=== PATIENT | female | born 1970 | race Caucasian/White ===

== ENCOUNTER 2021-04-18 12:40 | Day surgery (SDC) | payer OTHER ==
[2021-04-18] MEDS ORDERED: Depo-Medrol 40 MG/ML IM ONE (12:41)
[2021-04-18] MEDS ORDERED: Sodium Chloride 0.9(Preservative Free) 10 ML IJ ONE (12:41)
[2021-04-18] MEDS ORDERED: Xylocaine 1% Vial 30 ML PF IJ ONE (12:41)
[2021-04-18] MEDS ORDERED: DIPRIVAN 200 MG/20 ML IV ONE (15:09)
--- NOTE | 2021-04-18 16:38 | XRAY ---
Indication: Lumbar SAMANTHA. Intraoperative fluoroscopy provided for 35 seconds. Single lateral digital spot image submitted for interpretation demonstrates posterior needle tip just posterior to the L4-L5 interspace. Small amount of contrast injected for needle tip placement. Correlate with intraoperative findings/report.
--- NOTE | 2021-04-18 17:13 | XRAY ---
35 seconds fluoroscopy time in surgery for lumbar SAMANTHA.
[2021-04-18] MEDS ORDERED: Lactated Ringers 1,000 ML IV ONE (18:07)
== END 2021-04-18 15:45 | disposition home or self-care (01) ==
LOC: SDC-PAIN 12:40
PROVIDERS: ATTEND Psychiatry & Neurology Pain Medicine
DX: M54.16 Radiculopathy, lumbar region (principal); Z79.899 Other long term (current) drug therapy
CPT/HCPCS: 36415; 62321; 72100; 77003; 81025; J1030; J2001; J2704; Q9966

== ENCOUNTER 2021-07-04 10:26 | Day surgery (SDC) | payer OTHER ==
[2021-07-04] MEDS ORDERED: Sodium Chloride 0.9% 10 ML FLUSH Syringe IJ ONE (10:27)
[2021-07-04] MEDS ORDERED: Depo-Medrol 40 MG/ML IM ONE (10:27)
[2021-07-04] MEDS ORDERED: Xylocaine 1% Vial 30 ML PF IJ ONE (10:27)
[2021-07-04] MEDS ORDERED: DIPRIVAN 200 MG/20 ML IV ONE (11:58)
[2021-07-04] MEDS ORDERED: TORAdol 30 mg Injection ONE (12:15)
[2021-07-04] MEDS ORDERED: Lactated Ringers 1,000 ML IV ONE (12:28)
--- NOTE | 2021-07-04 12:36 | XRAY ---
30 seconds fluoroscopy time in surgery for lumbar SAMANTHA..
--- NOTE | 2021-07-04 12:46 | XRAY ---
Indication: Lumbar SAMANTHA. Intraoperative fluoroscopy provided for 30 seconds. Single lateral digital spot image submitted for interpretation demonstrates posterior needle tip projecting posterior to last lumbar segment. Small amount of contrast injected for needle tip placement. Correlate with intraoperative findings/report.
== END 2021-07-04 12:25 | disposition home or self-care (01) ==
LOC: SDC-PAIN 10:26
PROVIDERS: ATTEND Psychiatry & Neurology Pain Medicine
DX: M54.16 Radiculopathy, lumbar region (principal); I10 Essential (primary) hypertension; Z79.899 Other long term (current) drug therapy
CPT/HCPCS: 62323; 72100; 77003; 84703; J1030; J1885; J2001; J2704; Q9966

== ENCOUNTER 2021-10-25 13:21 | Day surgery (SDC) | payer OTHER ==
[2021-10-25] MEDS ORDERED: Depo-Medrol 40 MG/ML IM ONE (13:22)
[2021-10-25] MEDS ORDERED: Xylocaine 1% Vial 30 ML PF IJ ONE (13:22)
[2021-10-25 14:18] LABS: ALBUMIN 4.4 g/dL (3.5-5.0); ALKALINE PHOSPHATASE 68 U/L (38-126); ANION GAP 14.2 MEQ/L (5-15); BLOOD UREA NITROGEN 17 mg/dL (7-17); CHLORIDE 104 mmol/L (98-107); Calcium 9.9 mg/dL (8.4-10.2); Carbon Dioxide 27 mmol/L (22-30); Cholesterol 248 mg/dL (50-200); Creatinine 1 0.95 mg/dL (0.52-1.04); Direct Bilirubin 0.3 mg/dL (0.0-0.4); EST GLOMERULAR FILTRATION RATE > 60.0 ML/MIN; Glucose 93 mg/dL (74-106); HDL CHOLESTEROL 65 mg/dL (40-60); LDL, DIRECT 129 mg/dL (30-100); Potassium 3.7 mmol/L (3.5-5.1); Risk Ratio 3.8; SGOT/AST 34 U/L (14-36); SGPT/ALT 21 U/L (0-35); SODIUM 141 mmol/L (137-145); TRIGLYCERIDE 108 mg/dL (30-150); Total Protein 7.8 g/dL (6.3-8.2)
[2021-10-25] MEDS ORDERED: DIPRIVAN 200 MG/20 ML IV ONE (16:06)
[2021-10-25] MEDS ORDERED: Lactated Ringers 1,000 ML IV ONE (16:11)
--- NOTE | 2021-10-25 16:52 | XRAY ---
Indication: Bilateral SI joint injection. Intraoperative fluoroscopy provided for 21 seconds. 5 digital spot image submitted for interpretation demonstrates posterior needle tip projecting over the inferior left and right SI joint. Correlate with intraoperative findings/report.
--- NOTE | 2021-10-26 15:41 | XRAY ---
21 seconds fluoroscopy time for injections of both SI joints.
== END 2021-10-25 16:29 | disposition home or self-care (01) ==
LOC: SDC-PAIN 13:21
PROVIDERS: ATTEND Psychiatry & Neurology Pain Medicine
DX: M46.1 Sacroiliitis, not elsewhere classified (principal); I10 Essential (primary) hypertension; Z79.899 Other long term (current) drug therapy; Z13.9 Encounter for screening, unspecified
CPT/HCPCS: 27096; 36415; 72202; 77002; 80048; 80061; 80076; 83721; 83735; 84703; G0260; J1030; J2001; J2704

== ENCOUNTER 2021-11-07 05:50 | Day surgery (SDC) | payer OTHER ==
[2021-11-07] MEDS ORDERED: Lactated Ringers 1,000 ML IV SCH (06:30)
[2021-11-07] MEDS ORDERED: DIPRIVAN 200 MG/20 ML IV ONE ×3 (08:06→08:23)
[2021-11-07] MEDS ORDERED: Xylocaine-Mpf 2% 5 Ml Vial ONE (08:06)
[2021-11-07] MEDS ORDERED: ATROPINE SULFATE 1MG ONE (08:15)
--- NOTE | 2021-11-07 08:55 | OP ---
SURGERY DATE/TIME: 11/07/2021 0803 PREOPERATIVE DIAGNOSIS: Rectal pain. POSTOPERATIVE DIAGNOSIS: Diverticulosis. PROCEDURE: Diagnostic colonoscopy. SURGEON: Ted Pruitt M.D. ANESTHESIA: MAC by Kameron Bernal CRNA. ESTIMATED BLOOD LOSS: None. SPECIMENS: None. DESCRIPTION OF PROCEDURE: After informed written consent was obtained, the patient was taken to the endoscopy suite. She was placed in the left lateral decubitus position and digital rectal exam showed normal sphincter tone with no internal lesions after anesthesia was titrated to the desired level of consciousness. The colonscope was then inserted into the rectum and sequentially the entire colonic mucosa was traversed. The level of cecum was reached and verified with direct visualization of the ileocecal valve. The patient was noted to have a tortuous colon with diffuse diverticulosis but no other mucosal abnormalities. Prior to withdrawal retroflexion was performed and showed no internal lesions. The scope was removed. The patient was transferred to the recovery room in good condition.
[2021-11-07 09:26] VITALS: BP 138/86; PULSE 67; O2SAT 96
== END 2021-11-07 09:30 | disposition home or self-care (01) ==
LOC: SDC 05:50
PROVIDERS: ATTEND Family Medicine
DX: K57.30 Diverticulosis of large intestine without perforation or abscess without bleeding (principal); K62.89 Other specified diseases of anus and rectum
CPT/HCPCS: 84703; J0461; J2704

== ENCOUNTER 2022-09-04 14:55 | Day surgery (SDC) | payer OTHER ==
[2022-09-04] MEDS ORDERED: Depo-Medrol 40 MG/ML IM ONE (14:56)
[2022-09-04] MEDS ORDERED: BUPIVACAINE 0.5% VIAL IJ ONE (14:56)
[2022-09-04] MEDS ORDERED: DIPRIVAN 200 MG/20 ML IV ONE ×2 (16:52→17:02)
[2022-09-04] MEDS ORDERED: Lactated Ringers 1,000 ML IV ONE (17:43)
--- NOTE | 2022-09-04 19:11 | XRAY ---
Indication: Bilateral hip injection. Intraoperative fluoroscopy provided for 1 minute 8 seconds. 3 digital spot image submitted for interpretation demonstrates needle tip projecting lateral to the left and right femur neck. Small amount of contrast injected for both needle tip placement. Correlate with intraoperative findings/report.
--- NOTE | 2022-09-05 08:37 | XRAY ---
One minute and 8 seconds of fluoroscopy was used in surgery for a bilateral intra-articular hip injection.
== END 2022-09-04 17:30 | disposition home or self-care (01) ==
LOC: SDC-PAIN 14:55
PROVIDERS: ATTEND Psychiatry & Neurology Pain Medicine
DX: M17.0 Bilateral primary osteoarthritis of knee (principal); Z79.899 Other long term (current) drug therapy
CPT/HCPCS: 20610; 73521; 77002; 81025; J1030; J2704; Q9966

== ENCOUNTER 2022-10-09 13:36 | Day surgery (SDC) | payer OTHER ==
[2022-10-09] MEDS ORDERED: LIDOCAINE HCL 2% 100 MG/5 ML IJ ONE (13:37)
[2022-10-09 15:05] LABS: HCG URINE TEST NEGATIVE (NEGATIVE)
[2022-10-09 15:36] LABS: Absolute Neutrophil Ct (ANC) 3.52 x10^3/uL (1.4-6.9); BASOPHIL % 0.5 % (0.0-0.4); Basophil (Absolute #) 0.03 x10^3/uL (0-0.4); Eosinophil % 1.8 % (0.00-5.0); Eosinophil (Absolute #) 0.12 x10^3/uL (0-0.5); Hematocrit 43.4 % (35-47); Hemoglobin 13.2 g/dL (12.0-16.0); IMMATURE GRAN # 0.01 x10^3u/L (0.00-0.03); IMMATURE GRAN % 0.2 % (0.00-0.4); Lymphocyte (Absolute #) 2.43 x10^3/uL (1.0-4.6); Lymphocytes % 37.2 % (24.0-44.0); Mean Cell Volume 88.6 fL (78-100); Mean Corpuscular Hemoglobin 26.9 pg (26-32); Mean Corpuscular Hgb Concent. 30.4 g/dL (32-36); Mean Platelet Volume 9.2 fL (7.5-11.0); Monocyte (Absolute #) 0.43 x10^3/uL (0.0-1.3); Monocytes % 6.6 % (0.0-12.0); Neutrophil % 53.7 % (36.0-66.0); Platelet Count 297 x10^3/uL (150-450); Red Cell Distribution Width 13.2 % (11.5-14.0); White Blood Count 6.5 x10^3/uL (4.0-10.5)
[2022-10-09] MEDS ORDERED: DIPRIVAN 200 MG/20 ML IV ONE (15:59)
[2022-10-09] MEDS ORDERED: Lactated Ringers 1,000 ML IV ONE (16:43)
--- NOTE | 2022-10-09 16:45 | XRAY ---
Indication: Bilateral L4-S1 MBB. Intraoperative fluoroscopy provided for 14 seconds. Single digital spot image submitted for interpretation demonstrates posterior needle tips projecting over the expected left and right L4-S1 nerve roots. Correlate with intraoperative findings/report.
--- NOTE | 2022-10-09 16:47 | XRAY ---
14 seconds of fluoroscopy was used in surgery for a bilateral L4-S1 MBB.
== END 2022-10-09 16:30 | disposition home or self-care (01) ==
LOC: SDC-PAIN 13:36
PROVIDERS: ATTEND Psychiatry & Neurology Pain Medicine
DX: M47.816 Spondylosis without myelopathy or radiculopathy, lumbar region (principal); E03.9 Hypothyroidism, unspecified
CPT/HCPCS: 36415; 64493; 64494; 72020; 77002; 81025; 84439; 84443; 85025; J2704

== ENCOUNTER 2022-11-20 14:51 | Day surgery (SDC) | payer OTHER ==
[2022-11-20] MEDS ORDERED: BUPIVACAINE 0.5% VIAL IJ ONE (14:52)
[2022-11-20 15:03] LABS: HCG URINE TEST NEGATIVE (NEGATIVE)
[2022-11-20] MEDS ORDERED: DIPRIVAN 200 MG/20 ML IV ONE (16:01)
[2022-11-20] MEDS ORDERED: Lactated Ringers 1,000 ML IV ONE (16:36)
--- NOTE | 2022-11-20 23:30 | XRAY ---
Indication: Bilateral L4-S1 MBB. Intraoperative fluoroscopy provided for 11 seconds. Single digital spot image submitted for interpretation demonstrates posterior needle tips projecting over the expected left and right L4-S1 nerve roots. Correlate with intraoperative findings/report.
--- NOTE | 2022-11-21 17:35 | XRAY ---
11 seconds of fluoroscopy was used in surgery for a bilateral L4-S1 MBB.
== END 2022-11-20 16:30 | disposition home or self-care (01) ==
LOC: SDC-PAIN 14:51
PROVIDERS: ATTEND Psychiatry & Neurology Pain Medicine
DX: M47.816 Spondylosis without myelopathy or radiculopathy, lumbar region (principal); Z79.899 Other long term (current) drug therapy
CPT/HCPCS: 64493; 64494; 72020; 77002; 81025; J2704

== ENCOUNTER 2022-12-25 12:58 | Day surgery (SDC) | payer OTHER ==
[2022-12-25] MEDS ORDERED: BUPIVACAINE 0.5% VIAL IJ ONE (12:59)
[2022-12-25] MEDS ORDERED: LIDOCAINE HCL 1% 50 MG/5 ML VL PF IJ ONE (12:59)
[2022-12-25] MEDS ORDERED: Depo-Medrol 40 MG/ML IM ONE (12:59)
[2022-12-25 15:00] LABS: HCG URINE TEST NEGATIVE (NEGATIVE)
[2022-12-25] MEDS ORDERED: DIPRIVAN 200 MG/20 ML IV ONE (15:33)
[2022-12-25] MEDS ORDERED: Lactated Ringers 1,000 ML IV ONE (17:00)
--- NOTE | 2022-12-25 20:53 | XRAY ---
Indication: Left L4-S1 RFA. Intraoperative fluoroscopy provided for 37 seconds. 4 digital spot images submitted for interpretation demonstrates posterior needle tips projecting over the expected left L4-S1 nerve roots. Correlate with intraoperative findings/report.
--- NOTE | 2022-12-26 09:04 | XRAY ---
37 seconds of fluoroscopy was used in surgery for a left L4-S1 RFA.
== END 2022-12-25 16:05 | disposition home or self-care (01) ==
LOC: SDC-PAIN 12:58
PROVIDERS: ATTEND Psychiatry & Neurology Pain Medicine
DX: M47.816 Spondylosis without myelopathy or radiculopathy, lumbar region (principal); Z79.899 Other long term (current) drug therapy
CPT/HCPCS: 64635; 64636; 72100; 77002; 81025; J1030; J2001; J2704

== ENCOUNTER 2023-01-01 12:44 | Day surgery (SDC) | payer OTHER ==
[2023-01-01] MEDS ORDERED: LIDOCAINE HCL 1% 50 MG/5 ML VL PF IJ ONE (12:45)
[2023-01-01] MEDS ORDERED: BUPIVACAINE 0.5% VIAL IJ ONE (12:45)
[2023-01-01] MEDS ORDERED: Depo-Medrol 40 MG/ML IM ONE (12:45)
[2023-01-01 13:26] LABS: HCG URINE TEST NEGATIVE (NEGATIVE)
[2023-01-01] MEDS ORDERED: DIPRIVAN 200 MG/20 ML IV ONE (14:27)
[2023-01-01] MEDS ORDERED: Xylocaine-Mpf 2% 5 Ml Vial ONE (14:32)
[2023-01-01] MEDS ORDERED: Lactated Ringers 1,000 ML IV ONE (15:18)
--- NOTE | 2023-01-01 16:33 | XRAY ---
Indication: Right L4-S1 RFA. Intraoperative fluoroscopy provided for 17 seconds. 4 digital spot image submitted for interpretation demonstrates posterior needle tips projecting over the expected right L4-S1 nerve roots. Correlate with intraoperative findings/report.
--- NOTE | 2023-01-01 16:41 | XRAY ---
17 seconds of fluoroscopy was used in surgery for a right L4-S1 RFA.
== END 2023-01-01 15:02 | disposition home or self-care (01) ==
LOC: SDC-PAIN 12:44
PROVIDERS: ATTEND Psychiatry & Neurology Pain Medicine
DX: M47.816 Spondylosis without myelopathy or radiculopathy, lumbar region (principal); Z79.899 Other long term (current) drug therapy
CPT/HCPCS: 64635; 64636; 72100; 77002; 81025; J1030; J2001; J2704

== ENCOUNTER 2023-04-09 14:44 | Day surgery (SDC) | payer OTHER ==
[2023-04-09] MEDS ORDERED: BUPIVACAINE 0.5% VIAL IJ ONE (14:45)
[2023-04-09] MEDS ORDERED: Depo-Medrol 40 MG/ML IM ONE (14:45)
[2023-04-09 15:28] LABS: HCG URINE TEST NEGATIVE (NEGATIVE)
[2023-04-09] MEDS ORDERED: DIPRIVAN 200 MG/20 ML IV ONE (16:59)
[2023-04-09] MEDS ORDERED: Versed 2 MG/2 ML Injection ONE (17:00)
[2023-04-09] MEDS ORDERED: Lactated Ringers 1,000 ML IV ONE (17:24)
--- NOTE | 2023-04-09 18:03 | XRAY ---
Indication: Bilateral SI joint injection. Intraoperative fluoroscopy provided for 27 seconds. 4 digital spot image submitted for interpretation demonstrates posterior needle tip projecting over the expected left and right SI joint. Correlate with intraoperative findings/report.
--- NOTE | 2023-04-09 18:07 | XRAY ---
27 seconds of fluoroscopy was used in surgery for bilateral SI joint injections.
== END 2023-04-09 17:30 | disposition home or self-care (01) ==
LOC: SDC-PAIN 14:44
PROVIDERS: ATTEND Psychiatry & Neurology Pain Medicine
DX: M46.1 Sacroiliitis, not elsewhere classified (principal); Z79.899 Other long term (current) drug therapy
CPT/HCPCS: 01992; 27096; 72202; 77002; 81025; G0260; J1030; J2250; J2704

== ENCOUNTER 2023-07-23 14:50 | Day surgery (SDC) | payer OTHER ==
[2023-07-23] MEDS ORDERED: XYLOCAINE-MPF 1% 5ML SDV IJ ONE (14:51)
[2023-07-23] MEDS ORDERED: SYNVISC 16 MG/2 ML SYRINGE IU ONE (14:51)
[2023-07-23 15:38] LABS: HCG URINE TEST NEGATIVE (NEGATIVE)
--- NOTE | 2023-07-23 20:09 | XRAY ---
Indication: Right knee injection. Intraoperative fluoroscopy provided for 7 seconds. Single digital spot image submitted for interpretation demonstrates needle tip projecting over right femur intercondylar notch. Small amount of contrast injected for needle tip placement. Correlate with intraoperative findings/report.
--- NOTE | 2023-07-23 20:09 | XRAY ---
Indication: Left knee injection. Intraoperative fluoroscopy provided for 8 seconds. Single digital spot image submitted for interpretation demonstrates needle tip projecting over left femur intercondylar notch. Small amount of contrast injected for needle tip placement. Correlate with intraoperative findings/report.
--- NOTE | 2023-07-24 09:14 | XRAY ---
7 seconds of fluoroscopy was used in surgery for a right intra-articular knee injection.
--- NOTE | 2023-07-24 09:14 | XRAY ---
8 seconds of fluoroscopy was used in surgery for a left intra-articular knee injection.
== END 2023-07-23 17:15 | disposition home or self-care (01) ==
LOC: SDC-PAIN 14:50
PROVIDERS: ATTEND Psychiatry & Neurology Pain Medicine
DX: M17.0 Bilateral primary osteoarthritis of knee (principal)
CPT/HCPCS: 20610; 73560; 77002; 81025; J7325; Q9966

== ENCOUNTER 2023-07-30 15:43 | Day surgery (SDC) | payer OTHER ==
[2023-07-30] MEDS ORDERED: SYNVISC 16 MG/2 ML SYRINGE IU ONE (15:44)
[2023-07-30] MEDS ORDERED: XYLOCAINE-MPF 1% 5ML SDV IJ ONE (15:44)
[2023-07-30 17:20] LABS: HCG URINE TEST NEGATIVE (NEGATIVE)
--- NOTE | 2023-07-30 20:24 | XRAY ---
Indication: Right knee injection Intraoperative fluoroscopy provided for 4 seconds. Single digital spot image submitted for interpretation demonstrates needle tip projecting over right femur intercondylar notch. Small amount of contrast injected for needle tip placement. Correlate with intraoperative findings/report.
--- NOTE | 2023-07-30 20:24 | XRAY ---
Indication: Left knee injection Intraoperative fluoroscopy provided for 5 seconds. Single digital spot image submitted for interpretation demonstrates needle tip projecting over left femur intercondylar notch. Small amount of contrast injected for needle tip placement. Correlate with intraoperative findings/report.
--- NOTE | 2023-07-31 10:25 | XRAY ---
4 seconds of fluoroscopy was used in surgery for a right intra-articular knee injection.
--- NOTE | 2023-07-31 10:25 | XRAY ---
5 seconds of fluoroscopy was used in surgery for a left intra-articular knee injection.
== END 2023-07-30 18:48 | disposition home or self-care (01) ==
LOC: SDC-PAIN 15:43
PROVIDERS: ATTEND Psychiatry & Neurology Pain Medicine
DX: M17.0 Bilateral primary osteoarthritis of knee (principal)
CPT/HCPCS: 20610; 73560; 77002; 81025; J7325; Q9966

== ENCOUNTER 2023-08-06 15:39 | Day surgery (SDC) | payer OTHER ==
[2023-08-06] MEDS ORDERED: SYNVISC 16 MG/2 ML SYRINGE IU ONE (15:40)
[2023-08-06] MEDS ORDERED: XYLOCAINE-MPF 1% 5ML SDV IJ ONE (15:40)
[2023-08-06 17:25] LABS: HCG URINE TEST NEGATIVE (NEGATIVE)
--- NOTE | 2023-08-06 19:34 | XRAY ---
Indication: Right knee injection. Intraoperative fluoroscopy provided for 8 seconds. 2 digital spot images submitted for interpretation demonstrates needle tip projecting over the right femur intercondylar notch. Small amount of contrast injected for needle tip placement. Correlate with intraoperative findings/report.
--- NOTE | 2023-08-06 19:35 | XRAY ---
Indication: Left knee injection. Intraoperative fluoroscopy provided for 5 seconds. Single digital spot images submitted for interpretation demonstrates needle tip projecting over the left femur intercondylar notch. Small amount of contrast injected for needle tip placement. Correlate with intraoperative findings/report.
--- NOTE | 2023-08-07 08:39 | XRAY ---
8 seconds of fluoroscopy was used in surgery for a right intra-articular knee injection.
--- NOTE | 2023-08-07 08:39 | XRAY ---
5 seconds of fluoroscopy was used in surgery for a left intra-articular knee injection.
== END 2023-08-06 19:00 | disposition home or self-care (01) ==
LOC: SDC-PAIN 15:39
PROVIDERS: ATTEND Psychiatry & Neurology Pain Medicine
DX: M17.0 Bilateral primary osteoarthritis of knee (principal)
CPT/HCPCS: 20610; 73560; 77002; 81025; J7325; Q9966

== ENCOUNTER 2024-03-03 13:40 | Day surgery (SDC) | payer OTHER ==
[2024-03-03] MEDS ORDERED: Depo-Medrol 40 MG/ML IM ONE (13:41)
[2024-03-03] MEDS ORDERED: BUPIVACAINE 0.5% VIAL IJ ONE (13:41)
[2024-03-03] MEDS ORDERED: LIDOCAINE HCL 1% 50 MG/5 ML VL PF IJ ONE (13:41)
[2024-03-03 13:50] LABS: HCG URINE TEST NEGATIVE (NEGATIVE)
[2024-03-03] MEDS ORDERED: Lactated Ringers 1,000 ML IV ONE (15:02)
[2024-03-03] MEDS ORDERED: DIPRIVAN 200 MG/20 ML IV ONE (15:06)
--- NOTE | 2024-03-03 17:11 | XRAY ---
Indication: Right L4-S1 RFA. Intraoperative fluoroscopy provided for 27 seconds. 4 digital spot images submitted for interpretation demonstrates posterior needle tips projecting over the expected right L4-S1 nerve roots. Correlate with intraoperative findings/report.
--- NOTE | 2024-03-03 17:15 | XRAY ---
27 seconds of fluoroscopy was used in surgery for a right L4-S1 RFA.
== END 2024-03-03 15:40 | disposition home or self-care (01) ==
LOC: SDC-PAIN 13:40
PROVIDERS: ATTEND Psychiatry & Neurology Pain Medicine
DX: M47.816 Spondylosis without myelopathy or radiculopathy, lumbar region (principal)
CPT/HCPCS: 64635; 64636; 72100; 77002; 81025; J2001; J2704

== ENCOUNTER 2024-03-10 11:42 | Day surgery (SDC) | payer OTHER ==
[2024-03-10] MEDS ORDERED: BUPIVACAINE 0.5% VIAL IJ ONE (11:43)
[2024-03-10] MEDS ORDERED: Depo-Medrol 40 MG/ML IM ONE (11:43)
[2024-03-10] MEDS ORDERED: LIDOCAINE HCL 1% 50 MG/5 ML VL PF IJ ONE (11:43)
[2024-03-10 12:06] LABS: HCG URINE TEST NEGATIVE (NEGATIVE)
[2024-03-10] MEDS ORDERED: DIPRIVAN 200 MG/20 ML IV ONE (13:24)
--- NOTE | 2024-03-10 14:13 | XRAY ---
Indication: Left L4-S1 RFA. Intraoperative fluoroscopy provided for 23 seconds. 3 digital spot image submitted for interpretation demonstrates posterior needle tips projecting over the expected left L4-S1 nerve roots. Correlate with intraoperative findings/report.
[2024-03-10] MEDS ORDERED: Lactated Ringers 1,000 ML IV ONE (14:36)
--- NOTE | 2024-03-10 15:00 | XRAY ---
23 seconds of fluoroscopy was used in surgery for a left L4-S1 RFA.
== END 2024-03-10 13:59 | disposition home or self-care (01) ==
LOC: SDC-PAIN 11:42
PROVIDERS: ATTEND Psychiatry & Neurology Pain Medicine
DX: M47.816 Spondylosis without myelopathy or radiculopathy, lumbar region (principal)
CPT/HCPCS: 64635; 64636; 72100; 77002; 81025; J2001; J2704